=== PATIENT | female | born 1990 | race American Indian/Alaskan Native ===

== ENCOUNTER 2017-07-21 23:34 | Emergency (ER) | payer MEDICAID ==
--- NOTE | 2017-07-22 00:21 | OBHP ---
Datetime: 07/22/2017 00:16 IP Adm Impression: , intrauterine ; No Active Labor IP Chief Complaint Other: pelvic pressure and back pain IP Admit Plan: Discharge home Admit Comment, IP Provider: chief compalint-contractions, back pain, pelvic pressure HPI 27 y/o at 33 wga with c/o back pain and pelvic pressure.Patient has hx of deliuve ry and is gettingw eekly uma injections.denies vaginal bleeidng or loss of fluid.denies nausea, vo miting, headache, cehst pain, shortness of breatj course-on amkena for xh of ptd; pnc with [facility] PMH asthma PSH denies OBGYN HX -HX OF FTD; HX OF PTD AT 22 WGA Socilal hx denies tobacco or illicit drug use Exam see exam section A/P 27 y/o at 33 wga with c/o back pain and pelvic pressure.no active labor -discharge home -follow up in clinic irene - labor precautions given Pelvic Type - PN: Adequate Extremities - PN: Normal Abdomen - PN: Normal Back - PN: Normal Lungs - PN: Normal Heart - PN: Normal Neurologic - PN: Normal General - PN: Normal Contraction Comments Provider: none Gestation - Est Wks by US: 33.0 EGA AdmitDate IP: 33.0 Vital Signs Provider: Reviewed; Within Normal Limits IP Chief Complaint: Other FHR Category Provider Fetus A: Category I Dilatation, Provider: 0 Effacement, Provider: thick Station, Provider: high Genitourinary Exam: Normal
[2017-07-22 05:41] VITALS: BP 125/79; PULSE 89; RESP 18; TEMP 98.7
== END 2017-07-22 00:25 | disposition home or self-care (01) ==
LOC: C.EROB 23:34
DX: O26.893 Other specified pregnancy related conditions, third trimester (principal); Z3A.33 33 weeks gestation of pregnancy

== ENCOUNTER 2018-03-02 22:08 | Emergency (ER) | payer MEDICAID ==
[2018-03-02 22:09] VITALS: BMI 33.6
[2018-03-02 22:20] VITALS: BP 138/83; PULSE 89; TEMP 98.5; O2SAT 99
--- NOTE | 2018-03-02 22:37 | C.PDOC ---
History Of Present Illness 28 yo female come in for evaluation of gradual worsening of left lower toothache for past few days. Pt admits, pain is localized over Left lower jaw with intermittent radiation to left ear. Pt admits, similar sx in past. Otherwise, denies fever, chills, headache, dizziness, drooling, ear discharges, vertigo, trismus, recent dental work, neck pain, CP, SOB, dyspnea, cough, palpitation, denies any other active complaints. Ambulate to ED for evaluation, not in any apparent distress. Time Seen by Provider: 03/02/18 22:24 Chief Complaint (Nursing): Dental Pain History Per: Patient Past Medical History Reviewed: Historical Data, Nursing Documentation, Vital Signs Vital Signs: Last Vital Signs Temp 98.5 F 03/02/18 22:16 Pulse 89 03/02/18 22:16 Resp 20 03/02/18 23:00 BP 138/83 03/02/18 22:16 Pulse Ox 99 03/02/18 22:39 - Medical History PMH: Arthritis, Asthma, HTN Family History: States: No Known Family Hx - Social History Hx Alcohol Use: No Hx Substance Use: No - Immunization History Hx Tetanus Toxoid Vaccination: No Hx Influenza Vaccination: No Hx Pneumococcal Vaccination: No Review Of Systems Except As Marked, All Systems Reviewed And Found Negative. Constitutional: Negative for: Fever, Chills ENT: Positive for: Mouth Pain, Mouth Swelling. Negative for: Ear Discharge, Nose Discharge, Nose Congestion, Throat Pain, Throat Swelling Cardiovascular: Negative for: Chest Pain, Palpitations, Light Headedness Respiratory: Negative for: Cough, Shortness of Breath, SOB with Excertion, Wheezing Gastrointestinal: Negative for: Nausea, Vomiting Musculoskeletal: Negative for: Neck Pain Skin: Negative for: Rash Neurological: Negative for: Weakness, Numbness, Altered Mental Status, Headache , Dizziness Physical Exam - Physical Exam Appears: Well, Non-toxic, No Acute Distress Skin: Normal Color, Warm, No Rash Head: Normacephalic Eye(s): bilateral: PERRL Ear(s): Bilateral: Normal Nose: No Flaring, No Discharge Oral Mucosa: Moist, No Drooling, No Trismus Tongue: Normal Appearing Lips: Normal Appearing Teeth: Caries (Left lower wisdom), Tender To Palpation Gingiva: Erythema (around left lower wisdom), Tender (Left lower wisdom), No Bleeding, No Abscess Throat: No Erythema, No Drooling, Other (uvula midline, no edema.) Neck: Trachea Midline, Supple Lymphatic: No Adenopathy (cervical) Cardiovascular: Rhythm Regular, Murmur Respiratory: No Decreased Breath Sounds, No Accessory Muscle Use, No Rales, No Rhonchi, No Stridor, No Wheezing Extremity: Normal ROM, No Deformity, No Swelling Neurological/Psych: Oriented x3, Normal Speech ED Course And Treatment O2 Sat by Pulse Oximetry: 99 Pulse Ox Interpretation: Normal Progress Note: Pt denies any known allergy to medication including penicillin. On re-evaluation, pt is afebrile, hemodynamicaly stable. Non-toxic. Tolerate Po well in ED. PulsEOx 99 % RA. ENT: (+) Left lower wisdom tooth tenderness with gingivitis. No evidence of tooth abscess. no facial cellulitis. no drooling , no trismus. uvula midline, no edema. Neck: Supple, (-) meningeal sign. Lungs : CTA B/L, BS equal B/L. Neuorlogicaly intact. Pt advised. ref. to F/u with Dentist in 2-3 days f0r re-eavl. return to ED if any worsening or new changes. Disposition Counseled Patient/Family Regarding: Diagnosis, Need For Followup, Rx Given - Disposition Referrals: Randall Nelson MD [Primary Care Provider] - [facility] [Provider Group] [facility] [Provider Group] Disposition: HOME/ ROUTINE Disposition Time: 22:36 Condition: STABLE Additional Instructions: Warm salty water tooth baths 2-3 times daily for 5 minutes take medication as prescribed Follow up with Dentist in 2-3 days for re-evaluation. return to ED if any worsening or new changes. Prescriptions: Penicillin VK [Penicillin VK Tab] 500 mg PO BID #14 tab traMADol [Ultram] 50 mg PO TID #7 tab Instructions: Dental Pain (DC) Forms: [employer] ([place]an) - Clinical Impression Clinical Impression: Gingivitis, Dental caries
[2018-03-02 23:33] VITALS: RESP 20
== END 2018-03-02 23:00 | disposition home or self-care (01) ==
LOC: C.ER 22:08 → SUPCPDRO 22:08 → C.ER 23:00
DX: K05.10 Chronic gingivitis, plaque induced (principal); K02.9 Dental caries, unspecified; I10 Essential (primary) hypertension

== ENCOUNTER 2018-09-11 22:40 | Emergency (ER) | payer MEDICAID ==
[2018-09-11 22:41] VITALS: BMI 33.6
[2018-09-11 23:15] VITALS: BP 131/90; PULSE 76; RESP 20; TEMP 98.2; O2SAT 95
--- NOTE | 2018-09-11 23:52 | C.PDOC ---
History Of Present Illness 28 year old female with PMHx of carpal tunnel syndrome c/o right sided dental pain. Patient reports pain has been worsening and with no relief with Motrin. Patient also c/o bilateral wrist pain. Patient states she is waiting insurance clearance to have a procedure done with her Dentist. Patient denies fever, chills, facial swelling, headache, injury, fall, trauma, weakness, numbness. Time Seen by Provider: 09/11/18 23:26 Chief Complaint (Nursing): Dental Pain History Per: Patient History/Exam Limitations: no limitations Onset/Duration Of Symptoms: Days Current Symptoms Are (Timing): Still Present Quality: Positive for: "Pain" Recent travel outside of the [place]: No Additional History Per: Patient Past Medical History Reviewed: Historical Data, Nursing Documentation, Vital Signs Vital Signs: Last Vital Signs Temp 98.2 F 09/11/18 23:11 Pulse 76 09/11/18 23:11 Resp 20 09/11/18 23:11 BP 131/90 09/11/18 23:11 Pulse Ox 95 09/11/18 23:11 - Medical History PMH: Arthritis, Asthma, HTN Surgical History: No Surg Hx Family History: States: Unknown Family Hx - Social History Hx Alcohol Use: No Hx Substance Use: No - Immunization History Hx Tetanus Toxoid Vaccination: No Hx Influenza Vaccination: No Hx Pneumococcal Vaccination: No Review Of Systems Constitutional: Negative for: Fever, Chills ENT: Positive for: Mouth Pain. Negative for: Mouth Swelling Cardiovascular: Negative for: Chest Pain Respiratory: Negative for: Shortness of Breath Gastrointestinal: Negative for: Nausea, Vomiting, Abdominal Pain Musculoskeletal: Positive for: Hand Pain Skin: Negative for: Rash Neurological: Negative for: Weakness, Numbness Physical Exam - Physical Exam Appears: Non-toxic, No Acute Distress Skin: Normal Color, Warm, Dry Head: Atraumatic, Normacephalic Eye(s): bilateral: Normal Inspection, PERRL, EOMI Ear(s): Bilateral: Normal Oral Mucosa: Moist Lips: No Laceration Gingiva: No Swelling, Tender (to palpation posterior aspect left lower gum, ), No Bleeding, No Abscess Throat: Normal, No Erythema, No Exudate, No Drooling Neck: Normal ROM, Supple Chest: Symmetrical Cardiovascular: Rhythm Regular, No Murmur Respiratory: Normal Breath Sounds Extremity: Normal ROM, No Tenderness, Capillary Refill (< 2 seconds), No Deformity (hands), No Swelling (hands) Extremity: Bilateral: Atraumatic, Normal Color And Temperature Pulses: Left Radial: Normal, Right Radial: Normal Neurological/Psych: Oriented x3, Normal Speech, Normal Cognition, Normal Motor, Normal Sensation Gait: Steady ED Course And Treatment O2 Sat by Pulse Oximetry: 95 (ON RA) Pulse Ox Interpretation: Normal Progress Note: Plan: - Toradol 30 mg IM. On reassessment, patient is resting comfortably, and is in no acute distress. Patient was instructed to follow up with physician/clinic in 1-2 days for further evaluation. Disposition Counseled Patient/Family Regarding: Diagnosis, Need For Followup, Rx Given - Disposition Referrals: [facility], Dental clinic [Other] Disposition: HOME/ ROUTINE Disposition Time: 23:48 Condition: STABLE Additional Instructions: Avoid very cold or hot drinks Take medications as directed Return to ER if worse Prescriptions: traMADol [Ultram] 50 mg PO TID #15 tab Instructions: Dental Pain (DC) Forms: [employer] (Citizen Of [place]) - Clinical Impression Clinical Impression: Toothache - PA / TATTOO ARTIST / Resident Statement MD/DO has reviewed & agrees with the documentation as recorded. - Scribe Statement The provider has reviewed the documentation as recorded by the Scribe Froilan Giordano All medical record entries made by the Scribe were at my direction and personally dictated by me. I have reviewed the chart and agree that the record accurately reflects my personal performance of the history, physical exam, medical decision making, and the department course for this patient. I have also personally directed, reviewed, and agree with the discharge instructions and disposition.
== END 2018-09-12 00:02 | disposition home or self-care (01) ==
LOC: C.ER 22:40
DX: K08.89 Other specified disorders of teeth and supporting structures (principal)
CPT/HCPCS: 96372; 99283; J1885

== ENCOUNTER 2018-12-30 20:19 | Emergency (ER) | payer MEDICAID ==
[2018-12-30 20:19] VITALS: BMI 33.6
[2018-12-30 20:49] VITALS: RESP 18; O2SAT 99
[2018-12-30] MEDS ORDERED: Sodium Chloride 0.9% 1,000 ML IV ONE (21:13)
[2018-12-30] MEDS ORDERED: Sodium Chloride 0.9% 1,000 ML ONE (21:22)
[2018-12-30 21:29] LABS: BASO % 0.3 % (0.0-2.0); EOS % 0.6 % (0.0-4.0); HEMOGLOBIN 12.7 g/dL (11.0-16.0); LYMPH # 1.8 K/uL (1.0-4.3); LYMPH % 23.9 % (20.0-40.0); MEAN CELL VOLUME 83.6 fL (81.0-99.0); MEAN CORPUSCULAR HEMOGLOBIN 27.4 pg (27.0-31.0); MEAN CORPUSCULAR HGB CONC 32.8 g/dL (33.0-37.0); MEAN PLATELET VOLUME 9.1 fL (7.2-11.7); MONO # 0.4 K/uL (0.0-0.8); MONO % 4.6 % (0.0-10.0); NEUT # 5.4 K/uL (1.8-7.0); NEUT % 70.6 % (50.0-75.0); RBC 4.63 Mil/uL (3.80-5.20); RED CELL DISTRIBUTION WIDTH 15.2 % (11.5-14.5); WHITE BLOOD COUNT 7.7 K/uL (4.8-10.8)
[2018-12-30 21:40] LABS: ALB/GLOB RATIO 1.2 (1.0-2.1); ALBUMIN 3.9 g/dL (3.5-5.0); ALT/SGPT 16 U/L (9-52); AST/SGOT 13 U/L (14-36); BLOOD UREA NITROGEN 7 mg/dL (7-17); CALCIUM 9.7 mg/dl (8.6-10.4); GFR NON-AFRICAN AMERICAN > 60; LIPASE 58 U/L (23-300)
--- NOTE | 2018-12-30 21:44 | C.PDOC ---
History Of Present Illness 28 year old female, currently 16 weeks , , presents to the ED c/o abdominal cramping for the past 3 days. Patient reports having a recent miscarriage on 07/2018, during that she states she also had preeclampsia. Patient denies fever, chills, nausea, vomiting, diarrhea, dysuria, hematuria, back pain, vaginal bleeding, headache, dizziness, chest pain, SOB. Time Seen by Provider: 12/30/18 20:57 Chief Complaint (Nursing): Abdominal Pain History Per: Patient History/Exam Limitations: no limitations Onset/Duration Of Symptoms: Days (3) Current Symptoms Are (Timing): Still Present Severity: Mild Location Of Pain/Discomfort: Suprapubic Quality Of Discomfort: Cramping Associated Symptoms: denies: Fever, Chills, Nausea, Vomiting, Diarrhea, Urinary Symptoms Recent travel outside of the [place]: No Additional History Per: Patient Abnormal Vaginal Bleeding: No : 7 Para: 2 Miscarriage: 1 Past Medical History Reviewed: Historical Data, Nursing Documentation, Vital Signs Vital Signs: Last Vital Signs Temp 97.8 F 12/30/18 20:40 Pulse 74 12/30/18 20:40 Resp 18 12/30/18 20:40 BP 119/70 12/30/18 20:40 Pulse Ox 99 12/30/18 20:40 - Medical History PMH: Arthritis, Asthma, HTN Surgical History: No Surg Hx Family History: States: No Known Family Hx - Social History Hx Alcohol Use: No Hx Substance Use: No - Immunization History Hx Tetanus Toxoid Vaccination: No Hx Influenza Vaccination: No Hx Pneumococcal Vaccination: No Review Of Systems Constitutional: Negative for: Fever, Chills Cardiovascular: Negative for: Chest Pain, Palpitations Respiratory: Negative for: Cough, Shortness of Breath Gastrointestinal: Positive for: Abdominal Pain. Negative for: Nausea, Vomiting, Diarrhea Genitourinary: Negative for: Dysuria, Hematuria, Vaginal Discharge, Vaginal Bleeding Musculoskeletal: Negative for: Back Pain Skin: Negative for: Rash Neurological: Negative for: Weakness, Numbness Physical Exam - Physical Exam Appears: Well, Non-toxic, No Acute Distress Skin: Normal Color, Warm, Dry Eye(s): bilateral: Normal Inspection Oral Mucosa: Moist Neck: Supple Cardiovascular: Rhythm Regular Respiratory: Normal Breath Sounds, No Rales, No Rhonchi, No Wheezing Gastrointestinal/Abdominal: Bowel Sounds, Soft, Tenderness (mild suprapubic TTP), No Guarding, No Rebound, Other ((-) McBurneys) Back: No CVA Tenderness Extremity: Normal ROM, No Tenderness, No Swelling Neurological/Psych: Oriented x3 Gait: Steady ED Course And Treatment - Laboratory Results Result Diagrams: 12/30/18 21:25 12/30/18 21:25 O2 Sat by Pulse Oximetry: 99 (On RA) Pulse Ox Interpretation: Normal - CT Scan/US Pelvic US Other Rad Studies (CT/US): Read By Radiologist, Radiology Report Reviewed CT/US Interpretation: EXAM: US Obstetrical, Complete <14 weeks. CLINICAL HISTORY: WITH ABDOMINAL PAIN. TECHNIQUE: Transvaginal and transabdominal imaging of the maternal pelvis and a <14 week gestation with image documentation. COMPARISON: None provided. FINDINGS: GESTATION: See below. UTERUS: Unremarkable. No myometrial mass. CERVIX: Cervix measures 3.5 cm and appears closed. OVARIES: Unremarkable. No mass. FREE FLUID: No free fluid in the cul de sac. Amniotic fluid appears grossly within normal limits. MISCELLANEOUS: The placenta is posterior and is not low-lying. present ation is transverse. motion is observed. heart motion is observed at 151 beats per minute. BPD measures 2.9 cm compatible with 15.1 weeks estimated ultrasound age. Abdominal circumference measures 8.5 cm compatible with 14.6 weeks. Head circumference measures 12.8 cm compatible with 15.1 weeks. Femur length measures 1.6 cm compatible 14.4 weeks. Mean ultrasound age is 15.0 weeks. Good tone is noted by the technologist. IMPRESSION: 1. The placenta is posterior and is not low-lying. 2. Single live intrauterine gestation. heart motion observed at 151 beats per minute. 3. Mean ultrasound age is 15.0 weeks. 4. Cervix measures 3.5 cm and appears closed. 5. Amniotic fluid appears grossly within normal limits. 6. Good tone is noted by the technologist. 7. Additional, incidental findings as described above. . Electronically signed on Dec 31, 2018 12:20:18 AM EDT by: Bryant Paula M.D., Certified by [facility], Diagnostic Radiology Progress Note: Blood work, UA, transvaginal US ordered and reviewed. Patient given PO tylenol, IV NS bolus, lidoderm patch (later c/o low back pain). Reevaluation Time: 01:10 Reassessment Condition: Improved (Patient reassessed, is resting comfortably and states she feels better. On exam, abdomen is soft and nontender. US shows live IUP HR 151bpm. Patient states she is currently on PO antiboitics for UTI, and is starting to have vaginal itching (typically gets yeast infections on antiboitics). Rx for for miconazole given. Patient instructed to follow up with her ob.plaster mold maker within 1 week, and understands she should return to ED if symp toms worsen.) Disposition Counseled Patient/Family Regarding: Studies Performed, Diagnosis, Need For Followup - Disposition Referrals: [facility] [Outside] Disposition: HOME/ ROUTINE Disposition Time: :10 Condition: STABLE Additional Instructions: FOLLOW UP WITH YOUR PROJECT MANAGEMENT SPECIALIST WITHIN 1 WEEK RETURN TO ER IF YOU HAVE ANY CONCERNING OR WORSENING SYMPTOMS Prescriptions: Miconazole Nitrate [Monistat 3] 1 each VG DAILY #1 kit Instructions: Stomach Pain in Early Forms: [email or web address] (Malay) Print Language: GEORGIAN - Clinical Impression Clinical Impression: Abdominal cramping affecting , Vaginal candidiasis - Scribe Statement The provider has reviewed the documentation as recorded by the Scribe Froilan Giordano All medical record entries made by the Scribe were at my direction and personally dictated by me. I have reviewed the chart and agree that the record accurately reflects my personal performance of the history, physical exam, medical decision making, and the department course for this patient. I have also personally directed, reviewed, and agree with the discharge instructions and disposition.
[2018-12-30 23:31] LABS: SQUAMOUS EPITHIAL 3 /hpf (0-5); URINE BACTERIA OCC (<OCC); URINE BILIRUBIN NEGATIVE (NEGATIVE); URINE BLOOD NEGATIVE (NEGATIVE); URINE CLARITY Clear (Clear); URINE COLOR Yellow (YELLOW); URINE GLUCOSE (UA) NORMAL (Normal); URINE LEUKOCYTE ESTERASE NEG Leu/uL (Negative); URINE PROTEIN NEGATIVE (NEGATIVE); URINE UROBILINOGEN NORMAL mg/dL (0.2-1.0)
[2018-12-30 23:56] VITALS: BP 118/76; PULSE 102; TEMP 98.9
[2018-12-31] MEDS ORDERED: Lidocaine 5% Patch TD STA (01:15)
[2018-12-31] MEDS ORDERED: Lidocaine 5% Patch TD ONE (01:26)
--- NOTE | 2018-12-31 09:34 | US ---
Date of service: 12/30/2018 PROCEDURE: Obstetrical ultrasound examination HISTORY: abdominal pain, COMPARISON: Not available TECHNIQUE: Transabdominal FINDINGS: Examination demonstrates a single live intrauterine gestation in transverse lie. The heart rate is 151 beats per minute. A grossly normal quantity of amniotic fluid is visualized. A posterior placenta is identified. There is no evidence of placenta previa. The cervix is closed and measures 3.5 cm in length. biometry yields a gestational age of 15 weeks 0 days. The TRAN by ultrasound is 06/23/2019. The EFW is 105.51 g. Limited review of anatomy demonstrates fluid distending the stomach and urinary bladder. A three-vessel umbilical cord is identified. The anterior abdominal wall is intact. Full anatomic evaluation is advised sonographically at approximately 20 weeks gestation. IMPRESSION: Single live intrauterine gestation of approximately 15 weeks 0 days. No gross anatomic abnormality. Transverse lie. Posterior placenta. No previa. Cervix long and closed. heart rate 151. The preliminary findings for this examination were reported by [facility] Radiology at 12:20 a.m. on 12/31/2018. There is concurrence of this report with the preliminary findings.
== END 2018-12-31 01:15 | disposition home or self-care (01) ==
LOC: C.ER 20:19
DX: O26.892 Other specified pregnancy related conditions, second trimester (principal); R10.9 Unspecified abdominal pain; O98.812 Other maternal infectious and parasitic diseases complicating pregnancy, second trimester; B37.3 Candidiasis of vulva and vagina; Z3A.16 16 weeks gestation of pregnancy
CPT/HCPCS: 76815; 80053; 81001; 83690; 84702; 85025; 96360; 99284; J7030